=== PATIENT | male | born 1965 | race Caucasian/White ===

== ENCOUNTER 2016-11-15 23:43 | Inpatient (IN) | payer MEDICARE ==
[~2016-11-15] VITALS: Ht 180.3 cm; Wt 69.2 kg
[2016-11-15 23:46] VITALS: BP 185/99; PULSE 56; RESP 16; TEMP 98; O2SAT 98
[2016-11-16] VITALS (8 sets, daily range): BP systolic 148–190; BP diastolic 73–99; PULSE 60–73; RESP 16–20; TEMP 98.4; O2SAT 97–99
[2016-11-16] MEDS ORDERED: WELLTAB39 PO (00:14)
[2016-11-16] MEDS ORDERED: BYST10TA2 PO (00:14)
[2016-11-16] MEDS ORDERED: AMLO10TA2 PO ×2 (00:14→01:16)
[2016-11-16 00:37] LABS: AUTOMATED NEUTROPHIL # 2.8 TH/MM3 (1.8-7.7); BASOPHIL % 0.3 % (0.0-2.0); EOSINOPHIL # 0.1 TH/MM3 (0-0.4); HEMATOCRIT 37.9 % (39.0-51.0); HEMO FLAGS DIFF FINAL; LYMPH % 35.2 % (9.0-44.0); LYMPHOCYTE # 1.8 TH/MM3 (1.0-4.8); MEAN CELL VOLUME 88.1 FL (80.0-100.0); MEAN CORPUSCULAR HEMOGLOBIN 31.1 PG (27.0-34.0); MEAN CORPUSCULAR HGB CONC 35.3 % (32.0-36.0); MONO % 8.7 % (0.0-8.0); NEUT % 54.8 % (16.0-70.0); PLATELET COUNT 202 TH/MM3 (150-450); RED CELL DISTRIBUTION WIDTH 12.8 % (11.6-17.2); WHITE BLOOD COUNT 5.2 TH/MM3 (4.0-11.0)
[2016-11-16 00:45] LABS: AMPHETAMINE, URINE NEG (NEG); BARBITURATES, URINE NEG (NEG); COCAINE, URINE NEG (NEG)
[2016-11-16 01:07] LABS: ALT (GPT) 23 U/L (12-78); ANION GAP 8 MEQ/L (5-15); AST (GOT) 17 U/L (15-37); BLOOD UREA NITROGEN 14 MG/DL (7-18); CHLORIDE 105 MEQ/L (98-107); GLOMERULAR FILTRATION RATE 75 ML/MIN (>89); POTASSIUM 3.8 MEQ/L (3.5-5.1); SODIUM (NA) 143 MEQ/L (136-145)
[2016-11-16 01:09] LABS: ACETAMINOPHEN LESS THAN 2.0 MCG/ML (10.0-30.0); ALKALINE PHOSPHATASE 68 U/L (45-117); TOTAL BILIRUBIN ADULT 0.3 MG/DL (0.2-1.0)
[2016-11-16] MEDS ORDERED: LISI-515 PO (01:16)
--- NOTE | 2016-11-16 01:16 | PD ---
HPI Chief Complaint: Psychiatric Symptoms Time Seen by Provider: 01:12 Travel History International Travel<30 days: No Contact w/Intl Traveler<30days: No Traveled to known affect area: No History of Present Illness HPI Patient's 51-year-old male presenting to emergency department voluntarily due to worsening depression. Patient states it's been off of this medication for several months. He reports taking Wellbutrin 300 mg daily. He also reports a history of hypertension currently off of his blood pressure medications as well. Patient reports a previous suicide attempt 2 years ago while in [place], he states he cut his wrists. He reports not feeling safe alone with himself. He denies any homicidal ideations, visual or auditory hallucinations. He reports a past medical history significant for hypertension depression only.. Endorses occasional alcohol use and occasional marijuana use. PFSH Past Medical History Depression: Yes Hypertension: Yes Past Surgical History Other Surgery: Yes (back surgery) Social History Alcohol Use: Yes Tobacco Use: No Substance Use: Yes (mariuana) Allergies-Medications (Allergen,Severity, Reaction): Coded Allergies: No Known Allergies (Unverified , 11/16/16) Reported Meds & Prescriptions Reported Meds & Active Scripts Active Reported Amlodipine (Amlodipine Besylate) 10 Mg Tab 10 Mg PO DAILY Bystolic (Nebivolol) 10 Mg Tab 10 Mg PO DAILY Wellbutrin Xl 24 HR (Bupropion HCl) 300 Mg Tab 300 Mg PO DAILY Review of Systems Except as stated in HPI: all other systems reviewed are Neg Psychiatric: Positive: Depression Physical Exam Narrative GENERAL: Well-developed, well-nourished, alert male. Resting comfortably in no acute distress. SKIN: Focused skin assessment warm/dry. HEAD: Atraumatic. Normocephalic. EYES: Pupils equal and round. No scleral icterus. No injection or drainage. ENT: No nasal bleeding or discharge. Mucous membranes pink and moist. NECK: Trachea midline. No JVD. CARDIOVASCULAR: Regular rate and rhythm. No murmur appreciated. RESPIRATORY: No accessory muscle use. Clear to auscultation. Breath sounds equal bilaterally. GASTROINTESTINAL: Abdomen soft, non-tender, nondistended. Hepatic and splenic margins not palpable. MUSCULOSKELETAL: No obvious deformities. No clubbing. No cyanosis. No edema. NEUROLOGICAL: Awake and alert. No obvious cranial nerve deficits. Motor grossly within normal limits. Normal speech. PSYCHIATRIC: Appropriate mood and affect; insight and judgment normal. Data Data Last Documented VS Vital Signs Date Time Temp Pulse Resp B/P Pulse Ox O2 Delivery O2 Flow Rate FiO2 11/15/16 23:46 98.0 56 16 185/99 98 Orders Complete Blood Count With Diff (11/16/16 00:01) Comprehensive Metabolic Panel (11/16/16 00:01) Psych Screen (11/16/16 00:01) Drug Screen, Random Urine (11/16/16 00:01) Alcohol (Ethanol) (11/16/16 00:01) Salicylates (Aspirin) (11/16/16 00:01) Tylenol (Acetaminophen) (11/16/16 00:01) Labs Laboratory Tests Test 11/16/16 00:23 White Blood Count 5.2 TH/MM3 Red Blood Count 4.30 MIL/MM3 Hemoglobin 13.4 GM/DL Hematocrit 37.9 % Mean Corpuscular Volume 88.1 FL Mean Corpuscular Hemoglobin 31.1 PG Mean Corpuscular Hemoglobin 35.3 % Concent Red Cell Distribution Width 12.8 % Platelet Count 202 TH/MM3 Mean Platelet Volume 7.9 FL Neutrophils (%) (Auto) 54.8 % Lymphocytes (%) (Auto) 35.2 % Monocytes (%) (Auto) 8.7 % Eosinophils (%) (Auto) 1.0 % Basophils (%) (Auto) 0.3 % Neutrophils # (Auto) 2.8 TH/MM3 Lymphocytes # (Auto) 1.8 TH/MM3 Monocytes # (Auto) 0.4 TH/MM3 Eosinophils # (Auto) 0.1 TH/MM3 Basophils # (Auto) 0.0 TH/MM3 CBC Comment DIFF FINAL Differential Comment Sodium Level 143 MEQ/L Potassium Level 3.8 MEQ/L Chloride Level 105 MEQ/L Carbon Dioxide Level 30.0 MEQ/L Anion Gap 8 MEQ/L Blood Urea Nitrogen 14 MG/DL Creatinine 1.04 MG/DL Estimat Glomerular Filtration 75 ML/MIN Rate Random Glucose 77 MG/DL Calcium Level 8.8 MG/DL Total Bilirubin 0.3 MG/DL Aspartate Amino Transf 17 U/L (AST/SGOT) Alanine Aminotransferase 23 U/L (ALT/SGPT) Alkaline Phosphatase 68 U/L Total Protein 6.8 GM/DL Albumin 3.8 GM/DL Salicylates Level 2.8 MG/DL Urine Opiates Screen NEG Acetaminophen Level LESS THAN 2.0 MCG/ML Urine Barbiturates Screen NEG Urine Amphetamines Screen NEG Urine Benzodiazepines Screen NEG Urine Cocaine Screen NEG Urine Cannabinoids Screen POS Ethyl Alcohol Level LESS THAN 3 MG/DL MDM Medical Decision Making Medical Screen Exam Complete: Yes Emergency Medical Condition: Yes Interpretation(s) Laboratory Tests Test 11/16/16 00:23 White Blood Count 5.2 TH/MM3 Red Blood Count 4.30 MIL/MM3 Hemoglobin 13.4 GM/DL Hematocrit 37.9 % Mean Corpuscular Volume 88.1 FL Mean Corpuscular Hemoglobin 31.1 PG Mean Corpuscular Hemoglobin 35.3 % Concent Red Cell Distribution Width 12.8 % Platelet Count 202 TH/MM3 Mean Platelet Volume 7.9 FL Neutrophils (%) (Auto) 54.8 % Lymphocytes (%) (Auto) 35.2 % Monocytes (%) (Auto) 8.7 % Eosinophils (%) (Auto) 1.0 % Basophils (%) (Auto) 0.3 % Neutrophils # (Auto) 2.8 TH/MM3 Lymphocytes # (Auto) 1.8 TH/MM3 Monocytes # (Auto) 0.4 TH/MM3 Eosinophils # (Auto) 0.1 TH/MM3 Basophils # (Auto) 0.0 TH/MM3 CBC Comment DIFF FINAL Differential Comment Sodium Level 143 MEQ/L Potassium Level 3.8 MEQ/L Chloride Level 105 MEQ/L Carbon Dioxide Level 30.0 MEQ/L Anion Gap 8 MEQ/L Blood Urea Nitrogen 14 MG/DL Creatinine 1.04 MG/DL Estimat Glomerular Filtration 75 ML/MIN Rate Random Glucose 77 MG/DL Calcium Level 8.8 MG/DL Total Bilirubin 0.3 MG/DL Aspartate Amino Transf 17 U/L (AST/SGOT) Alanine Aminotransferase 23 U/L (ALT/SGPT) Alkaline Phosphatase 68 U/L Total Protein 6.8 GM/DL Albumin 3.8 GM/DL Salicylates Level 2.8 MG/DL Urine Opiates Screen NEG Acetaminophen Level LESS THAN 2.0 MCG/ML Urine Barbiturates Screen NEG Urine Amphetamines Screen NEG Urine Benzodiazepines Screen NEG Urine Cocaine Screen NEG Urine Cannabinoids Screen POS Ethyl Alcohol Level LESS THAN 3 MG/DL Vital Signs Date Time Temp Pulse Resp B/P Pulse Ox O2 Delivery O2 Flow Rate FiO2 11/15/16 23:46 98.0 56 16 185/99 98 Differential Diagnosis Mood disorder versus substance abuse to suicidal ideations versus depression versus other Narrative Course Patient's 51-year-old male with history of hypertension and depression currently off his medications for several months presenting to the emergency department for evaluation of depression and suicidal thoughts. Mental health screening discussed with the patient. Psychiatric screen ordered. Labs reviewed , no acute findings identified. Patient is resting comfortably, he is voluntary , he is cooperative at this time. Patient is medically clear for psychiatric evaluation. Blood pressure elevated in the emergency department. Patient was given dose of amlodipine 10 mg by mouth 1 dose and lisinopril. Prescriptions were written her blood pressure medications. Patient is to follow-up as outpatient at the [facility] clinic or with primary doctor for further management of his hypertension. Diagnosis Primary Impression: Medical clearance for psychiatric admission Additional Impressions: Depression Qualified Code: F32.9 - Depression, unspecified depression type Hypertension Qualified Code: I10 - Essential hypertension Scripts Lisinopril 20 Mg Tab20 Mg PO DAILY #30 TAB Ref 0 Prov:Ariella Norman 11/16/16 Amlodipine 10 Mg Tab10 Mg PO DAILY #30 TAB Ref 0 Prov:Ariella Norman 11/16/16 Condition: Stable Ariella Norman Nov 16, 2016 01:16
[2016-11-16] MEDS ORDERED: LISINOPRIL 20 MG TAB PO ONE ×2 (01:30→09:45)
[2016-11-16] MEDS ORDERED: hydrALAZINE HCL 10 MG TAB PO ONE (08:45)
[2016-11-16] MEDS: NEBIVOLOL 10 MG TAB PO SCH (09:49)
[2016-11-16] MEDS: LISINOPRIL 20 MG TAB PO SCH (09:50)
[2016-11-17 02:09] VITALS: BP 144/68; PULSE 55; RESP 20; TEMP 98.8; O2SAT 99
[2016-11-17 06:16] VITALS: BP 165/91; PULSE 55; RESP 17; O2SAT 97
[2016-11-17] MEDS: NEBIVOLOL 10 MG TAB PO SCH (09:00)
[2016-11-17 14:18] VITALS: BP 149/84; PULSE 54; RESP 18; O2SAT 100
[2016-11-17] MEDS ORDERED: ACETAMINOPHEN 325 MG TAB PO PRN (15:45)
[2016-11-17] MEDS ORDERED: LORazepam 1 MG TAB PO PRN (15:45)
[2016-11-17] MEDS ORDERED: LORazepam 2 MG/ML VIAL IM PRN ×2 (15:45)
[2016-11-17] MEDS ORDERED: MAGNESIUM HYDROXIDE SUSP 30 ML CUP PO PRN (15:45)
[2016-11-17] MEDS ORDERED: ALUMINUM/MAGNESIUM/SIMETH 30 ML CUP PO PRN (15:45)
[2016-11-17] MEDS ORDERED: LORazepam 0.5 MG TAB PO PRN (15:45)
[2016-11-17] MEDS ORDERED: hydrOXYzine HCL 50 MG TAB PO PRN (15:45)
[2016-11-17] MEDS ORDERED: traZODone HCL 50 MG TAB PO PRN (15:45)
[2016-11-17] MEDS ORDERED: buPROPion HCL 150 MG EXTENDED RELEASE TAB PO SCH (16:00)
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
[2016-11-17 16:29] VITALS: BP 149/84; TEMP 97.9
[2016-11-17 18:06] VITALS: BP 159/90; PULSE 53; RESP 19; TEMP 98.7; O2SAT 98
[2016-11-17] MEDS: buPROPion HCL 150 MG SUSTAINED RELEASE TAB PO SCH (20:36)
[2016-11-18] MEDS: buPROPion HCL 150 MG SUSTAINED RELEASE TAB PO SCH ×2 (09:00→20:06)
[2016-11-18] MEDS: NEBIVOLOL 10 MG TAB PO SCH (09:17)
[2016-11-18] MEDS: LISINOPRIL 20 MG TAB PO SCH (09:17)
[2016-11-18] MEDS ORDERED: MISCELLANEOUS NURSING INFORMATION ONE (10:00)
[2016-11-18] MEDS ORDERED: PNEUMOCOCCAL POLYVALENT INJ 25 MCG/0.5 ML SYR IM ONE (10:00)
[2016-11-18 11:29] LABS: BASOPHIL % 0.4 % (0.0-2.0); EOSINOPHIL % 0.5 % (0.0-4.0); HEMATOCRIT 47.3 % (39.0-51.0); HEMO FLAGS DIFF FINAL; LYMPH % 21.5 % (9.0-44.0); LYMPHOCYTE # 1.2 TH/MM3 (1.0-4.8); MEAN CELL VOLUME 89.6 FL (80.0-100.0); MEAN CORPUSCULAR HEMOGLOBIN 30.5 PG (27.0-34.0); MONO % 7.6 % (0.0-8.0); PLATELET COUNT 260 TH/MM3 (150-450); RED BLOOD COUNT 5.28 MIL/MM3 (4.50-5.90); RED CELL DISTRIBUTION WIDTH 13.2 % (11.6-17.2); WHITE BLOOD COUNT 5.8 TH/MM3 (4.0-11.0)
[2016-11-18 11:46] LABS: ALT (GPT) 26 U/L (12-78); ANION GAP 8 MEQ/L (5-15); AST (GOT) 15 U/L (15-37); BLOOD UREA NITROGEN 15 MG/DL (7-18); CHLORIDE 104 MEQ/L (98-107); GLOMERULAR FILTRATION RATE 81 ML/MIN (>89); POTASSIUM 3.8 MEQ/L (3.5-5.1); SODIUM (NA) 144 MEQ/L (136-145)
[2016-11-18 12:12] LABS: ALKALINE PHOSPHATASE 60 U/L (45-117); HDL CHOLESTEROL 55.8 MG/DL (40.0-60.0); LDL CHOLESTEROL 102 MG/DL (0-99); TOTAL BILIRUBIN ADULT 0.7 MG/DL (0.2-1.0)
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
--- NOTE | 2016-11-18 14:22 | EKG ---
Date Performed: 11/18/2016 Time Performed: 13:07:55 PTAGE: 51 years EKG: SINUS BRADYCARDIA INCOMPLETE RIGHT BUNDLE BRANCH BLOCK BORDERLINE ECG NO PREVIOUS TRACING DOCTOR: Marco Rodríguez Interpretating Date/Time 11/18/2016 14:20:20
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
[2016-11-18] MEDS ORDERED: LORazepam 1 MG TAB PO PRN (16:15)
[2016-11-18] MEDS ORDERED: ACETAMINOPHEN 325 MG TAB PO PRN (16:15)
[2016-11-18] MEDS ORDERED: MAGNESIUM HYDROXIDE SUSP 30 ML CUP PO PRN (16:15)
[2016-11-18] MEDS ORDERED: ALUMINUM/MAGNESIUM/SIMETH 30 ML CUP PO PRN (16:15)
[2016-11-18] MEDS ORDERED: hydrOXYzine HCL 50 MG TAB PO PRN (16:15)
[2016-11-18] MEDS ORDERED: LISINOPRIL 10 MG TAB PO ONE (16:45)
[2016-11-18 17:01] LABS: HEMOGLOBIN A1a 0.7 %; HEMOGLOBIN A1b 0.7 %; HEMOGLOBIN Ao 86.6 %; HEMOGLOBIN F 0.8 %; HEMOGLOBIN LA1C 1.8 %; HEMOGLOBIN P3 3.5 %
[2016-11-18 18:00] VITALS: BP 159/91; PULSE 50; RESP 18; TEMP 98.2; O2SAT 98
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
[2016-11-18] MEDS: REMOVE OLD NICODERM (NICOTINE) PATCH T-DERMAL SCH (20:07)
[2016-11-18] MEDS ORDERED: OLANZapine ODT 15 MG TAB PO SCH (21:00)
[2016-11-19 06:17] VITALS: BP 107/58; PULSE 52; RESP 17; TEMP 99.5; O2SAT 99
[2016-11-19] MEDS: MULTIVITAMIN TAB PO SCH (08:28)
[2016-11-19] MEDS: buPROPion HCL 150 MG SUSTAINED RELEASE TAB PO SCH ×2 (08:29→21:00)
[2016-11-19] MEDS: NEBIVOLOL 10 MG TAB PO SCH (08:29)
[2016-11-19] MEDS: NICOTINE 21 MG/24 HR PATCH T-DERMAL SCH (08:29)
--- NOTE | 2016-11-19 12:36 | HHI.PR ---
Subjective Remarks Ambulating in the hallways. Appears in nad. Patient says he feels better today. His BP is still uncontrolled. Says he is allergic to lisinopril. Says he has no headache, motor deficit. No n/v/d/c. Objective Vitals Vital Signs Date Time Temp Pulse Resp B/P Pulse Ox O2 Delivery O2 Flow Rate FiO2 11/19/16 06:17 99.5 52 17 107/58 99 11/18/16 18:00 98.2 50 18 159/91 98 11/18/16 18:00 98.2 50 18 159/91 98 Result Diagram: 11/18/16 1018 11/18/16 1018 Objective Remarks GENERAL: This is a well-nourished, well-developed patient, in no apparent distress. NECK: Trachea midline. No JVD or lymphadenopathy. Supple, nontender, no meningeal signs. CARDIOVASCULAR: Regular rate and rhythm without murmurs, gallops, or rubs. RESPIRATORY: Clear to auscultation. Breath sounds equal bilaterally. No wheezes , rales, or rhonchi. GASTROINTESTINAL: Abdomen soft, non-tender, nondistended. Bowel sounds active 4. MUSCULOSKELETAL: Extremities without clubbing, cyanosis, or edema. NEUROLOGICAL: Awake and alert. Oriented to place and person. Motor and sensory grossly within normal limits. Normal speech. A/P Problem List: (1) Chronic paranoid schizophrenia ICD Code: F20.0 Status: Acute (2) Hypertension ICD Code: I10 Status: Acute (3) Depression ICD Code: F32.9 Status: Acute Assessment and Plan Patient is a 51 y/o male with PMHX HTN, depression who came in to the hospital for worsening depression. He is now admitted to inpatient psychiatric unit for further evaluation. Consulted for medical management. Depression - Managed by psychiatry team Hypertension, uncontrolled Restart home meds amlodipine 10 mg daily, bystolic 10 mg daily BP still elevated. Monitor VS and adjust meds. Add hydralazine 10 mg po qid as need if SBP > 160. Patient is allergic to lisinopril. Continue when necessary clonidine for SBP greater than 160. Monitor BP trend Check lipid panel, check HgA1C, check tsh DVT prop ambulatory Code Status Full Code Discussed Condition With Patient, nurse Problem Qualifiers (1) Hypertension: Qualified Code: I10 - Essential hypertension (2) Depression: Qualified Code: F32.9 - Depression, unspecified depression type Ynes West MD Nov 19, 2016 12:35
--- NOTE | 2016-11-19 15:26 | HHI.PYPN ---
Subjective Remarks Patient was seen and case discussed with nursing. Patient is loud irritable and intrusive. Is perseverative on convincing me that in implant is above his right kidney and is asking me how about there. Says an x-ray scheduled for Monday improve his case in addition to an ultrasound is demanding. We spoke about his diagnosis of schizophrenia and patient became upset demanding to know who diagnosed him the psychotic disorder. Was loud and irritable with nursing Objective Alert: Yes [place]: Person, Place, Date Mood: Agitated, Angry, Anxious, Oppositional Affect: Manic, Other (paranoid) Memory Intact: Comment (fair) Hallucinations: Auditory (denies) Delusions: Yes Delusion Type: Grandiose, Paranoid (implant is controlling him) Suicidal: Ideation (states to consider killing himself if this monitoring does not go away) Homicidal: Ideation (denies) Insight/Judgment Poor Vitals/IOs Vital Signs Date Time Temp Pulse Resp B/P Pulse Ox O2 Delivery O2 Flow Rate FiO2 11/19/16 06:17 99.5 52 17 107/58 99 11/17/16 14:18 Room Air Assessment & Plan Problem List: (1) Chronic paranoid schizophrenia ICD Code: F20.0 Assessment & Plan Increase Zyprexa to 20 mg Justification for Cont. Inpt. Patient would decompensate in a less restrictive setting Linwood Murillo DO Nov 19, 2016 15:26
[2016-11-19 18:21] VITALS: BP 154/79; PULSE 49; RESP 18; TEMP 97.6; O2SAT 100
[2016-11-19] MEDS: OLANZapine ODT 20 MG TAB PO SCH (21:00)
[2016-11-19] MEDS: REMOVE OLD NICODERM (NICOTINE) PATCH T-DERMAL SCH (21:00)
[2016-11-20 06:01] VITALS: BP 128/71; PULSE 55; RESP 16; TEMP 98; O2SAT 100
[2016-11-20] MEDS: NEBIVOLOL 10 MG TAB PO SCH (08:20)
[2016-11-20] MEDS: MULTIVITAMIN TAB PO SCH (08:20)
[2016-11-20] MEDS: buPROPion HCL 150 MG SUSTAINED RELEASE TAB PO SCH ×2 (08:20→16:45)
[2016-11-20] MEDS: NICOTINE 21 MG/24 HR PATCH T-DERMAL SCH (08:21)
--- NOTE | 2016-11-20 11:47 | HHI.PR ---
Subjective Remarks Follow-up visit hypertension. Patient seen and examined today. States he is feeling better his chest that he is in " a lot not too good of the situation, that affecting my blood pressure ." Patient states that he is allergic to lisinopril and all the "Pril" medications and requesting to make sure that it is not ordered anywhere on his chart. Reassured patient. Otherwise, denies pain and discomfort. Denies SOB/ dyspnea. Denies chest pain, palpitations, headaches, dizziness. Denies fevers, chills, n/v/d. Denies dysuria. Objective Vitals Vital Signs Date Time Temp Pulse Resp B/P Pulse Ox O2 Delivery O2 Flow Rate FiO2 11/20/16 06:01 98.0 55 16 128/71 100 11/19/16 18:21 97.6 49 18 154/79 100 Result Diagram: 11/18/16 1018 11/18/16 1018 Objective Remarks GENERAL: This is a well-nourished, well-developed patient, in no apparent distress. SKIN: No rashes, ecchymoses or lesions. Cool and dry. HEAD: Atraumatic. Normocephalic. No temporal or scalp tenderness. EYES: Pupils equal round and reactive. Extraocular motions intact. No scleral icterus. No injection or drainage. ENT: Nose without bleeding. Throat without erythema. Uvula midline. Airway patent. NECK: Trachea midline. No JVD or lymphadenopathy. Supple, nontender, no meningeal signs. CARDIOVASCULAR: Regular rate and rhythm without murmurs, gallops, or rubs. RESPIRATORY: Clear to auscultation. Breath sounds equal bilaterally. No wheezes , rales, or rhonchi. GASTROINTESTINAL: Abdomen soft, non-tender, nondistended. Bowel sounds active 4. MUSCULOSKELETAL: Extremities without clubbing, cyanosis, or edema. NEUROLOGICAL: Awake and alert. Oriented to place and person. Motor and sensory grossly within normal limits. Pressured speech. A/P Problem List: (1) Chronic paranoid schizophrenia ICD Code: F20.0 Status: Acute (2) Hypertension ICD Code: I10 Status: Acute (3) Depression ICD Code: F32.9 Status: Acute Assessment and Plan Patient is a 51 y/o male with PMHX HTN, depression who came in to the hospital for worsening depression. He is now admitted to inpatient psychiatric unit for further evaluation. Consulted for medical management. Depression - Managed by psychiatry team Hypertension - Restart home meds amlodipine 10 mg daily, bystolic 10 mg daily - clonidine for SBP greater than 160 - Monitor BP trend - TSH within normal, hemoglobin A1c 5.0 HLD - LDL c102 - Patient states he is healthy and is aiming to be in good health. We'll continue with lifestyle changes for now - Follow up with PCP DVT prop ambulatory Discussed with patient, nursing Stable from Hospitalist standpoint. We will sign off. Reconsult as needed. Problem Qualifiers (1) Hypertension: Qualified Code: I10 - Essential hypertension (2) Depression: Qualified Code: F32.9 - Depression, unspecified depression type Verna Sidhu Nov 20, 2016 11:47
--- NOTE | 2016-11-20 14:11 | HHI.PYPN ---
Subjective Remarks Patient was seen and case discussed with nursing. Patient is less perseverative and less irritable compared to yesterday. However he is elevated hyperverbal. Asking for his Wellbutrin second dose to be given earlier in the day because it interferes with sleep but then says his Zyprexa makes him too sleepy. Continues to have fixed delusion that he has an implant. No outbursts. Denies suicidal ideation intent or plan Objective Alert: Yes [place]: Person, Place, Date Mood: Anxious Affect: Manic, Other (paranoid) Memory Intact: Comment (fair) Hallucinations: Auditory (denies) Delusions: Yes Delusion Type: Grandiose, Paranoid (implant is controlling him) Suicidal: Ideation (states to consider killing himself if this monitoring does not go away) Homicidal: Ideation (denies) Insight/Judgment Poor Vitals/IOs Vital Signs Date Time Temp Pulse Resp B/P Pulse Ox O2 Delivery O2 Flow Rate FiO2 11/20/16 06:01 98.0 55 16 128/71 100 11/17/16 14:18 Room Air Assessment & Plan Problem List: (1) Chronic paranoid schizophrenia ICD Code: F20.0 Assessment & Plan Change timing of Wellbutrin Justification for Cont. Inpt. Patient will decompensate in a less restrictive setting Linwood Murillo DO Nov 20, 2016 14:11
[2016-11-20 17:34] VITALS: BP 184/93; PULSE 50; RESP 18; TEMP 97.5; O2SAT 100
[2016-11-20] MEDS: OLANZapine ODT 20 MG TAB PO SCH (20:35)
[2016-11-20] MEDS: REMOVE OLD NICODERM (NICOTINE) PATCH T-DERMAL SCH (20:36)
[2016-11-21 06:01] VITALS: BP 148/74; PULSE 54; RESP 20; TEMP 97.8; O2SAT 97
[2016-11-21] MEDS: MULTIVITAMIN TAB PO SCH (09:06)
[2016-11-21] MEDS: buPROPion HCL 150 MG SUSTAINED RELEASE TAB PO SCH ×2 (09:07→18:02)
[2016-11-21] MEDS: NEBIVOLOL 10 MG TAB PO SCH (09:07)
[2016-11-21] MEDS: NICOTINE 21 MG/24 HR PATCH T-DERMAL SCH (09:08)
--- NOTE | 2016-11-21 11:59 | PD.TTN ---
Patient Problems 1. Discharge planning 2. Medication compliance 3. Knowledge deficit 4. Lack of coping skills Progress Toward Goals Provider Input: Dr. Blair's treatment team met to discuss patient's treatment plan, discharge and medication. Patient Psych Therapist Input: Patient is alert to person, place, but has poor insight into his situation. Patient continues to present with delusional content. Patient presented hostle, agitated, anxious, affect blunted. Patient's speech was clear with pressure. Patient is eating and sleeping well. Patient continues to state he is current in suicidal ideation, but denies homicidal. Patient continues to be responding to internal stimulated and being controlled. Occupational Therapist Input: Andrea ALMONTE reports patient does not attend groups. Carin Martin [facility] Nov 21, 2016 11:59
[2016-11-21] MEDS: LORazepam 2 MG/ML VIAL IM PRN (12:19)
--- NOTE | 2016-11-21 15:00 | HHI.PYPN ---
Subjective Remarks Patient seen in his room with nurse Al and medical student Isaac, chart review, patient compliant medication. Patient states he had somewhat of an adverse reaction to the Zyprexa over the weekend feeling somewhat days, lightheaded, and weak. Like he could not think. Staff is also talked to the patient's sister it appears she has issues with mood disorder and is on an antidepressant plus Abilify. It appears Abilify worked well with the sister. Patient is willing to have a trial with Abilify. Will discontinue the Zyprexa start Abilify 5 mg twice a day. Continue the Wellbutrin no change patient continues quite intense fidgety with rapid pressured speech and some poor personal boundaries. Is delusions continue related to the conspiratorial aspects of it. He also keeps voicing vague suicidal ideation for now continue treatment with med changes as above Review of Systems Except as stated in HPI: all other systems reviewed are Neg Objective Alert: Yes [place]: Person, Place, Date Mood: Anxious Affect: Manic, Other (paranoid) Memory Intact: Comment (fair) Hallucinations: Auditory (denies) Delusions: Yes Delusion Type: Grandiose, Paranoid (implant is controlling him) Suicidal: Ideation (states to consider killing himself if this monitoring does not go away) Homicidal: Ideation (denies) Insight/Judgment Poor Vitals/IOs Vital Signs Date Time Temp Pulse Resp B/P Pulse Ox O2 Delivery O2 Flow Rate FiO2 11/21/16 06:01 97.8 54 20 148/74 97 11/17/16 14:18 Room Air Assessment & Plan Problem List: (1) Chronic paranoid schizophrenia ICD Code: F20.0 Assessment & Plan Estimated LOS: days patient continues psychotic delusional, it appears he had an adverse reaction to the Zyprexa will discontinue that start Abilify 5 mg twice a day Justification for Cont. Inpt. At this time patient will decompensate the placed in a lower level of care Discharge Planning To be determined Arya Blair MD Nov 21, 2016 15:00
[2016-11-21 16:52] VITALS: BP 136/85; PULSE 50; RESP 18; TEMP 97.2; O2SAT 100
[2016-11-21] MEDS: REMOVE OLD NICODERM (NICOTINE) PATCH T-DERMAL SCH (21:00)
[2016-11-21] MEDS: ARIPiprazole 5 MG TAB PO SCH (21:36)
[2016-11-22 06:19] VITALS: BP 129/70; PULSE 64; RESP 20; TEMP 98.3; O2SAT 97
[2016-11-22] MEDS: LORazepam 2 MG/ML VIAL IM PRN ×2 (08:10→20:12)
[2016-11-22] MEDS: MULTIVITAMIN TAB PO SCH (08:58)
[2016-11-22] MEDS: buPROPion HCL 150 MG SUSTAINED RELEASE TAB PO SCH ×2 (08:58→17:00)
[2016-11-22] MEDS: NEBIVOLOL 10 MG TAB PO SCH (08:58)
[2016-11-22] MEDS: ARIPiprazole 5 MG TAB PO SCH ×2 (08:58→20:11)
[2016-11-22] MEDS: NICOTINE 21 MG/24 HR PATCH T-DERMAL SCH (08:58)
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
[2016-11-22 16:04] VITALS: BP 160/84; PULSE 65; RESP 18; TEMP 98.1; O2SAT 98
[2016-11-22] MEDS: REMOVE OLD NICODERM (NICOTINE) PATCH T-DERMAL SCH (20:15)
[2016-11-23] MEDS: hydrALAZINE HCL 10 MG TAB PO PRN (06:07)
[2016-11-23 06:26] VITALS: BP 193/91; PULSE 74; RESP 20; TEMP 97.9; O2SAT 98
[2016-11-23] MEDS: buPROPion HCL 150 MG SUSTAINED RELEASE TAB PO SCH ×2 (09:00→16:17)
[2016-11-23] MEDS: NICOTINE 21 MG/24 HR PATCH T-DERMAL SCH (09:00)
[2016-11-23] MEDS: MULTIVITAMIN TAB PO SCH (09:19)
[2016-11-23] MEDS: ARIPiprazole 5 MG TAB PO SCH ×2 (09:19→21:06)
[2016-11-23] MEDS: NEBIVOLOL 10 MG TAB PO SCH (09:19)
[2016-11-23] MEDS: LORazepam 2 MG/ML VIAL IM PRN (09:38)
[2016-11-23 09:49] VITALS: BP 160/98; PULSE 92; RESP 16
[2016-11-23] MEDS: cloNIDine HCL 0.1 MG TAB PO PRN (09:49)
[2016-11-23 11:37] VITALS: BP 140/88; PULSE 72; RESP 16
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
[2016-11-23] MEDS: DIAZEPAM 5 MG TAB PO SCH ×2 (16:17→21:06)
[2016-11-23 18:11] VITALS: BP 126/86; PULSE 64; RESP 18; TEMP 98; O2SAT 99
[2016-11-23] MEDS: REMOVE OLD NICODERM (NICOTINE) PATCH T-DERMAL SCH (21:00)
[2016-11-24] MEDS: NEBIVOLOL 10 MG TAB PO SCH (08:50)
[2016-11-24] MEDS: DIAZEPAM 5 MG TAB PO SCH ×4 (08:51→21:48)
[2016-11-24] MEDS: ARIPiprazole 5 MG TAB PO SCH ×2 (08:51→21:48)
[2016-11-24] MEDS: MULTIVITAMIN TAB PO SCH (08:52)
[2016-11-24] MEDS: NICOTINE 21 MG/24 HR PATCH T-DERMAL SCH (08:52)
[2016-11-24] MEDS: buPROPion HCL 150 MG SUSTAINED RELEASE TAB PO SCH ×2 (08:52→16:49)
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
[2016-11-24 16:01] VITALS: BP 138/87; PULSE 60; RESP 18; TEMP 97.3; O2SAT 98
[2016-11-24] MEDS: REMOVE OLD NICODERM (NICOTINE) PATCH T-DERMAL SCH (21:00)
[2016-11-25 06:45] VITALS: BP 159/75; PULSE 75; RESP 18; TEMP 97.1; O2SAT 100
[2016-11-25] MEDS: NEBIVOLOL 10 MG TAB PO SCH (08:39)
[2016-11-25] MEDS: MULTIVITAMIN TAB PO SCH (08:39)
[2016-11-25] MEDS: ARIPiprazole 5 MG TAB PO SCH (08:39)
[2016-11-25] MEDS: DIAZEPAM 5 MG TAB PO SCH ×4 (08:44→21:20)
[2016-11-25] MEDS: buPROPion HCL 150 MG SUSTAINED RELEASE TAB PO SCH ×2 (09:00→17:30)
[2016-11-25] MEDS: NICOTINE 21 MG/24 HR PATCH T-DERMAL SCH (09:00)
--- NOTE | 2016-11-25 14:22 | HHI.PYPN ---
Subjective Remarks Patient seen in day room nurse Maynor, patient states he slept from 10 PM to 4 AM which for him is remarkable success. He continues to show no signs of problems with the medication. His affect is somewhat softer less intense less paranoid. Though the basic delusion has not changed. Now will increase Abilify to 5 mg a.m. 10 mg at at bedtime Review of Systems Except as stated in HPI: all other systems reviewed are Neg Objective Alert: Yes [place]: Person, Place, Date Mood: Anxious Affect: Manic, Other (paranoid) Memory Intact: Comment (fair) Hallucinations: Auditory (denies) Delusions: Yes Delusion Type: Grandiose, Paranoid (implant is controlling him) Suicidal: Ideation (states to consider killing himself if this monitoring does not go away) Homicidal: Ideation (denies) Insight/Judgment Poor Vitals/IOs Vital Signs Date Time Temp Pulse Resp B/P Pulse Ox O2 Delivery O2 Flow Rate FiO2 11/25/16 06:45 97.1 75 18 159/75 100 Intake and Output 11/24/16 11/24/16 11/25/16 08:00 16:00 00:00 Intake Total 240 ml 240 ml Balance 240 ml 240 ml Assessment & Plan Problem List: (1) Chronic paranoid schizophrenia ICD Code: F20.0 Assessment & Plan Estimated LOS: days patient is psychotic with fixed delusions. Though the intensity the affect irritability when placing medication adjustment above Justification for Cont. Inpt. At this time patient will decompensate if placed in a lower level of care Discharge Planning To be determined Arya Blair MD Nov 25, 2016 14:22
[2016-11-25 17:38] VITALS: BP 113/67; PULSE 73; RESP 18; TEMP 97.8; O2SAT 93
[2016-11-25 17:39] VITALS: BP 139/81; PULSE 58; RESP 18; TEMP 97.6; O2SAT 99
[2016-11-25] MEDS: REMOVE OLD NICODERM (NICOTINE) PATCH T-DERMAL SCH (21:00)
[2016-11-25] MEDS: ARIPiprazole 10 MG TAB PO SCH (21:20)
[2016-11-26 06:52] VITALS: BP 151/67; PULSE 53; RESP 16; TEMP 97.5; O2SAT 98
[2016-11-26] MEDS: MULTIVITAMIN TAB PO SCH (08:58)
[2016-11-26] MEDS: DIAZEPAM 5 MG TAB PO SCH ×4 (08:59→22:11)
[2016-11-26] MEDS: ARIPiprazole 5 MG TAB PO SCH (08:59)
[2016-11-26] MEDS: NEBIVOLOL 10 MG TAB PO SCH (08:59)
[2016-11-26] MEDS: buPROPion HCL 150 MG SUSTAINED RELEASE TAB PO SCH ×2 (08:59→17:03)
[2016-11-26] MEDS: NICOTINE 21 MG/24 HR PATCH T-DERMAL SCH (09:00)
--- NOTE | 2016-11-26 15:44 | HHI.PYPN ---
Subjective Remarks Pt seen and discussed with staff. He remains delusional and believes that the FBI has implanted a device in his kidney. He states that he is tired of being controlled. He expressed SI and states that he is not safe. No SI/HI Objective Alert: Yes [place]: Person, Place, Date Mood: Calm Affect: Restricted, Other (paranoid) Memory Intact: Comment (fair) Hallucinations: Auditory (denies) Delusions: Yes Delusion Type: Grandiose, Paranoid (implant is controlling him) Suicidal: Ideation (states to consider killing himself if this monitoring does not go away) Homicidal: Ideation (denies) Insight/Judgment poor Vitals/IOs Vital Signs Date Time Temp Pulse Resp B/P Pulse Ox O2 Delivery O2 Flow Rate FiO2 11/26/16 06:52 97.5 53 16 151/67 98 Intake and Output 11/25/16 11/25/16 11/26/16 08:00 16:00 00:00 Intake Total 240 ml 240 ml Balance 240 ml 240 ml Assessment & Plan Problem List: (1) Chronic paranoid schizophrenia ICD Code: F20.0 Assessment & Plan Continue current tx plan. Estimated LOS: days Justification for Cont. Inpt. risk of decompensation Karen Carson MD Nov 26, 2016 15:44
[2016-11-26] MEDS: cloNIDine HCL 0.1 MG TAB PO PRN (17:03)
[2016-11-26 18:00] VITALS: BP 175/97; PULSE 60; RESP 16; TEMP 98.7; O2SAT 100
[2016-11-26] MEDS: REMOVE OLD NICODERM (NICOTINE) PATCH T-DERMAL SCH (21:00)
[2016-11-26] MEDS: ARIPiprazole 10 MG TAB PO SCH (22:02)
[2016-11-27 06:48] VITALS: BP 124/73; PULSE 65; RESP 20; TEMP 96; O2SAT 98
[2016-11-27] MEDS: NICOTINE 21 MG/24 HR PATCH T-DERMAL SCH (09:00)
[2016-11-27] MEDS: ARIPiprazole 5 MG TAB PO SCH (09:15)
[2016-11-27] MEDS: buPROPion HCL 150 MG SUSTAINED RELEASE TAB PO SCH ×2 (09:15→17:30)
[2016-11-27] MEDS: NEBIVOLOL 10 MG TAB PO SCH (09:15)
[2016-11-27] MEDS: MULTIVITAMIN TAB PO SCH (09:15)
[2016-11-27] MEDS: DIAZEPAM 5 MG TAB PO SCH ×4 (09:15→21:27)
--- NOTE | 2016-11-27 15:43 | HHI.PYPN ---
Subjective Remarks Pt seen and discussed with staff. He has spent most of day in room, resting in bed. Less focused on delusions today. He has been compliant with medications and reports sleep improved. No SI/HI Objective Alert: Yes [place]: Person, Place, Date Mood: Calm Affect: Restricted, Other (paranoid) Memory Intact: Comment (fair) Hallucinations: Auditory (denies) Delusions: Yes Delusion Type: Paranoid (implant is controlling him) Suicidal: Ideation (states to consider killing himself if this monitoring does not go away) Homicidal: Ideation (denies) Insight/Judgment poor Vitals/IOs Vital Signs Date Time Temp Pulse Resp B/P Pulse Ox O2 Delivery O2 Flow Rate FiO2 11/27/16 06:48 96.0 65 20 124/73 98 Assessment & Plan Problem List: (1) Chronic paranoid schizophrenia ICD Code: F20.0 Assessment & Plan Continue current tx plan. Estimated LOS: days Justification for Cont. Inpt. impairments in reality construction Karen Carson MD Nov 27, 2016 15:43
[2016-11-27 17:42] VITALS: BP 126/78; PULSE 65; RESP 18; TEMP 97.2; O2SAT 100
[2016-11-27] MEDS: REMOVE OLD NICODERM (NICOTINE) PATCH T-DERMAL SCH (21:00)
[2016-11-27] MEDS: ARIPiprazole 10 MG TAB PO SCH (21:27)
[2016-11-28 05:48] VITALS: BP 121/84; PULSE 64; RESP 19; TEMP 97; O2SAT 99
[2016-11-28] MEDS: NICOTINE 21 MG/24 HR PATCH T-DERMAL SCH (09:00)
[2016-11-28] MEDS: MULTIVITAMIN TAB PO SCH (09:05)
[2016-11-28] MEDS: DIAZEPAM 5 MG TAB PO SCH ×4 (09:06→21:20)
[2016-11-28] MEDS: buPROPion HCL 150 MG SUSTAINED RELEASE TAB PO SCH ×2 (09:06→16:55)
[2016-11-28] MEDS: NEBIVOLOL 10 MG TAB PO SCH (09:06)
[2016-11-28] MEDS: ARIPiprazole 5 MG TAB PO SCH (09:06)
--- NOTE | 2016-11-28 13:02 | HHI.PYPN ---
Subjective Remarks Issues discussed the treatment team, chart review, patient compliant medication. Patient seen on unit with nurse Lety patient states he still has been sleeping all night wishes first time he has done that "years". Giving him increased focus is somewhat more relaxed. Though the cord delusional ideation persists. Is not exhibiting the intense paranoia he has in the past. For now continue treatment no change Review of Systems Except as stated in HPI: all other systems reviewed are Neg Objective Alert: Yes [place]: Person, Place, Date Mood: Calm Affect: Restricted, Other (paranoid) Memory Intact: Comment (fair) Hallucinations: Auditory (denies) Delusions: Yes Delusion Type: Paranoid (implant is controlling him) Suicidal: Ideation (states to consider killing himself if this monitoring does not go away) Homicidal: Ideation (denies) Insight/Judgment Poor Vitals/IOs Vital Signs Date Time Temp Pulse Resp B/P Pulse Ox O2 Delivery O2 Flow Rate FiO2 11/28/16 05:48 97.0 64 19 121/84 99 Assessment & Plan Problem List: (1) Chronic paranoid schizophrenia ICD Code: F20.0 Assessment & Plan Estimated LOS: days patient continues delusional and intense though sleep is improving his affect is somewhat calmer there is slight decrease in the expression of his paranoia Justification for Cont. Inpt. At this time patient will decompensate then placed in a lower level of care Discharge Planning To be determined Arya Blair MD Nov 28, 2016 13:02
[2016-11-28] MEDS: hydrALAZINE HCL 10 MG TAB PO PRN (16:56)
[2016-11-28 17:12] VITALS: BP 163/92; PULSE 66; RESP 18; TEMP 97.9; O2SAT 98
[2016-11-28 18:14] VITALS: BP 140/90; PULSE 76; RESP 16
[2016-11-28] MEDS: ARIPiprazole 10 MG TAB PO SCH (20:57)
[2016-11-28] MEDS: REMOVE OLD NICODERM (NICOTINE) PATCH T-DERMAL SCH (20:58)
[2016-11-29 05:23] VITALS: BP 134/82; PULSE 55; RESP 19; TEMP 97.6; O2SAT 98
[2016-11-29 06:28] VITALS: BP 134/82; PULSE 55; RESP 19; TEMP 97.6; O2SAT 98
[2016-11-29] MEDS: buPROPion HCL 150 MG SUSTAINED RELEASE TAB PO SCH ×2 (08:36→17:49)
[2016-11-29] MEDS: DIAZEPAM 5 MG TAB PO SCH ×4 (08:36→21:09)
[2016-11-29] MEDS: NEBIVOLOL 10 MG TAB PO SCH (08:36)
[2016-11-29] MEDS: ARIPiprazole 5 MG TAB PO SCH (08:36)
[2016-11-29] MEDS: MULTIVITAMIN TAB PO SCH (08:36)
[2016-11-29] MEDS: NICOTINE 21 MG/24 HR PATCH T-DERMAL SCH (09:00)
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
[2016-11-29 15:34] VITALS: BP 132/86; PULSE 60; RESP 18; TEMP 97.6; O2SAT 97
[2016-11-29] MEDS: REMOVE OLD NICODERM (NICOTINE) PATCH T-DERMAL SCH (20:56)
[2016-11-29] MEDS: ARIPiprazole 10 MG TAB PO SCH (21:09)
[2016-11-30 05:39] VITALS: BP 135/57; PULSE 63; RESP 17; TEMP 97; O2SAT 99
[2016-11-30] MEDS: NEBIVOLOL 10 MG TAB PO SCH (08:42)
[2016-11-30] MEDS: MULTIVITAMIN TAB PO SCH (08:42)
[2016-11-30] MEDS: buPROPion HCL 150 MG SUSTAINED RELEASE TAB PO SCH (08:43)
[2016-11-30] MEDS: ARIPiprazole 5 MG TAB PO SCH (08:43)
[2016-11-30] MEDS: DIAZEPAM 5 MG TAB PO SCH ×2 (08:43→13:28)
[2016-11-30] MEDS: NICOTINE 21 MG/24 HR PATCH T-DERMAL SCH (09:00)
[2016-11-30] MEDS ORDERED: DIAZ5 PO (10:55)
[2016-11-30] MEDS ORDERED: THERTAB15 PO (10:55)
[2016-11-30] MEDS ORDERED: AMLO10 PO (10:55)
[2016-11-30] MEDS ORDERED: ARIP1TAB11 PO (10:55)
[2016-11-30] MEDS ORDERED: BUPR150CR PO (10:55)
[2016-11-30] MEDS ORDERED: BYST10TA2 PO (10:55)
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
== END 2016-11-30 14:10 | disposition home or self-care (01) | DRG 885 ==
LOC: NEPD 23:43 → NEDA 11-17 15:40 → H260 11-17 16:43
PROVIDERS: ADMIT Psychiatry & Neurology Psychiatry; ATTEND Psychiatry & Neurology Psychiatry
DX: F20.0 Paranoid schizophrenia (principal); R45.851 Suicidal ideations; I10 Essential (primary) hypertension; F32.9 Major depressive disorder, single episode, unspecified; E78.5 Hyperlipidemia, unspecified; G89.29 Other chronic pain; M54.9 Dorsalgia, unspecified; Z91.5 Personal history of self-harm; Z23 Encounter for immunization
CPT/HCPCS: 80053; 80061; 80307; 82306; 82607; 83036; 84443; 85025; 90732; 93005; J2060

== ENCOUNTER 2016-12-20 11:12 | Emergency (ER) | payer SELFPAY ==
[~2016-12-20 11:12] MED LIST: AMLO10 PO; AMLO10TA2 PO; ARIP1TAB11 PO; BUPR150CR PO; BYST10TA2 PO; DIAZ5 PO; THERTAB15 PO; WELLTAB39 PO
[2016-12-20 11:26] VITALS: BP 205/96; PULSE 101; RESP 20; TEMP 98.9; O2SAT 100
[2016-12-20] MEDS ORDERED: LIDOCAINE HCL 1% 50 ML VIAL INFIL ONE (11:45)
[2016-12-20] MEDS ORDERED: KETOROLAC TROMETHAMINE 30 MG/ML (IVP) VIAL IV PUSH ONE (11:45)
[2016-12-20] MEDS ORDERED: CLINDAMYCIN INJ 600 MG in SODIUM CHLORIDE 0.9% INJ 100 ML IV ONE (11:45)
--- NOTE | 2016-12-20 11:49 | PD ---
HPI Chief Complaint: Skin Problem Time Seen by Provider: 11:33 Travel History International Travel<30 days: No Contact w/Intl Traveler<30days: No Traveled to known affect area: No History of Present Illness HPI This is a 51-year-old male who presents to the emergency department with 4 days of increasing pain and swelling involving his left thumb, constant, moderate severity associated with some streaking up his left arm. He denies any fevers or chills. He also has some complaints of lower she may swelling which is been going on for a while. PFSH Past Medical History Depression: Yes Hypertension: Yes Psychiatric: Yes (Bipolar) Past Surgical History Other Surgery: Yes (back surgery) Social History Alcohol Use: Yes Tobacco Use: No Substance Use: Yes (marijuana) Allergies-Medications (Allergen,Severity, Reaction): Coded Allergies: Lisinopril (Verified Allergy, Severe, TACHYCARDIA, 11/16/16) Aspirin (Verified Allergy, Intermediate, GI UPSET, 11/16/16) Reported Meds & Prescriptions Reported Meds & Active Scripts Active Bystolic (Nebivolol) 10 Mg Tab 10 Mg PO DAILY Thera/Beta-Carotene (Multiple Vitamin) 1 Tab Tab 1 Tab PO DAILY Reported Amlodipine (Amlodipine Besylate) 10 Mg Tab 10 Mg PO DAILY Bystolic (Nebivolol) 10 Mg Tab 10 Mg PO DAILY Wellbutrin Xl 24 HR (Bupropion HCl) 300 Mg Tab 300 Mg PO DAILY Review of Systems Except as stated in HPI: all other systems reviewed are Neg Physical Exam Narrative GENERAL:Well appearing, no acute distress SKIN: Large paronychia involving the left thumb with some lymphangitis streaking up the left arm HEAD: Atraumatic. Normocephalic. EYES: Pupils equal and round. No injection or drainage. ENT: Moist mucous membranes NECK: Trachea midline. CARDIOVASCULAR: Regular rate and rhythm. No murmur appreciated. RESPIRATORY: Clear to auscultation. Breath sounds equal bilaterally. GASTROINTESTINAL: Abdomen soft, non-tender, nondistended. MUSCULOSKELETAL: No obvious deformities. NEUROLOGICAL: Awake and alert. No obvious cranial nerve deficits. Moving all extremities. PSYCHIATRIC: Appropriate mood and affect; insight and judgment normal. Data Data Last Documented VS Vital Signs Date Time Temp Pulse Resp B/P Pulse Ox O2 Delivery O2 Flow Rate FiO2 12/20/16 11:26 98.9 101 20 205/96 100 Orders Complete Blood Count With Diff (12/20/16 11:37) Comprehensive Metabolic Panel (12/20/16 11:37) Lidocaine 1% Inj (50 Ml) (Xylocaine 1% I (12/20/16 11:45) Wound Culture And Gram Stain (12/20/16 11:37) Clindamycin Inj (Cleocin Inj) (12/20/16 11:45) Ketorolac Inj (Toradol Inj) (12/20/16 11:45) Lidocaine 1% Inj (Xylocaine 1% Inj) (12/20/16 12:15) Potassium Chloride Eff (K-Lyte Cl Eff) (12/20/16 13:15) Labs Laboratory Tests Test 12/20/16 11:50 White Blood Count 9.7 TH/MM3 Red Blood Count 3.95 MIL/MM3 Hemoglobin 12.3 GM/DL Hematocrit 35.3 % Mean Corpuscular Volume 89.6 FL Mean Corpuscular Hemoglobin 31.1 PG Mean Corpuscular Hemoglobin 34.7 % Concent Red Cell Distribution Width 12.9 % Platelet Count 305 TH/MM3 Mean Platelet Volume 6.2 FL Neutrophils (%) (Auto) 75.4 % Lymphocytes (%) (Auto) 13.7 % Monocytes (%) (Auto) 10.3 % Eosinophils (%) (Auto) 0.4 % Basophils (%) (Auto) 0.2 % Neutrophils # (Auto) 7.3 TH/MM3 Lymphocytes # (Auto) 1.3 TH/MM3 Monocytes # (Auto) 1.0 TH/MM3 Eosinophils # (Auto) 0.0 TH/MM3 Basophils # (Auto) 0.0 TH/MM3 CBC Comment DIFF FINAL Differential Comment Sodium Level 137 MEQ/L Potassium Level 2.8 MEQ/L Chloride Level 99 MEQ/L Carbon Dioxide Level 30.2 MEQ/L Anion Gap 8 MEQ/L Blood Urea Nitrogen 11 MG/DL Creatinine 0.92 MG/DL Estimat Glomerular Filtration 86 ML/MIN Rate Random Glucose 77 MG/DL Calcium Level 9.1 MG/DL Total Bilirubin 0.8 MG/DL Aspartate Amino Transf 31 U/L (AST/SGOT) Alanine Aminotransferase 33 U/L (ALT/SGPT) Alkaline Phosphatase 89 U/L Total Protein 7.6 GM/DL Albumin 3.8 GM/DL [facility] Medical Decision Making Medical Screen Exam Complete: Yes Emergency Medical Condition: Yes Interpretation(s) afebrile, mild tachycardia, hypertensive no leukocytosis hypokalemia Differential Diagnosis paronychia, cellulitis, sepsis Narrative Course This is a 41-year-old male who presents to the emergency department with a large paronychia involving his thumb. He does have some lymphangitic spread in the arm. Labs are obtained which demonstrate a normal white blood cell count. His only SIRS criteria is tachycardia with a heart rate of 101. I don't think he septic. Discussed the pros and cons of admission versus discharge with the patient. The patient is homeless and has some psychiatric disease. I think [facility] would be a good choice for this patient because if he is unable to follow-up he will get complete treatment for his infection. I still emphasized that he should return to the emergency department if his symptoms worsen but at this time I don't think he meets admission criteria. Patient will be discharged home. Diagnosis Primary Impression: Paronychia Qualified Code: L03.012 - Paronychia, left Patient Instructions: General Instructions Additional Instructions: If you develop fever, increasing redness, warmth, or spreading of your infection , or severe pain return to the emergency department immediately as you may require antibiotics through your IV. Med/Other Pt SpecificInfo: No Change to Meds Disposition: 01 DISCHARGE HOME Condition: Stable Jessica Nicholson MD Dec 20, 2016 11:49
--- NOTE | 2016-12-20 12:12 | PD ---
Physical Exam Date Seen by Provider: Dec 20, 2016 Time Seen by Provider: 12:11 Data Data Last Documented VS Vital Signs Date Time Temp Pulse Resp B/P Pulse Ox O2 Delivery O2 Flow Rate FiO2 12/20/16 11:26 98.9 101 20 205/96 100 Orders Complete Blood Count With Diff (12/20/16 11:37) Comprehensive Metabolic Panel (12/20/16 11:37) Lidocaine 1% Inj (50 Ml) (Xylocaine 1% I (12/20/16 11:45) Wound Culture And Gram Stain (12/20/16 11:37) Clindamycin Inj (Cleocin Inj) (12/20/16 11:45) Ketorolac Inj (Toradol Inj) (12/20/16 11:45) Lidocaine 1% Inj (Xylocaine 1% Inj) (12/20/16 12:15) Potassium Chloride Eff (K-Lyte Cl Eff) (12/20/16 13:15) Consult Infectious Disease (12/20/16 ) Case Management Consult (12/20/16 ) [facility] Information ([facility] (12/20/16 14:00) [facility] Inj ([facility] Inj) (12/20/16 13:59) [facility] (12/20/16 13:59) Measurements (12/20/16 13:59) Labs Laboratory Tests Test 12/20/16 11:50 White Blood Count 9.7 TH/MM3 Red Blood Count 3.95 MIL/MM3 Hemoglobin 12.3 GM/DL Hematocrit 35.3 % Mean Corpuscular Volume 89.6 FL Mean Corpuscular Hemoglobin 31.1 PG Mean Corpuscular Hemoglobin 34.7 % Concent Red Cell Distribution Width 12.9 % Platelet Count 305 TH/MM3 Mean Platelet Volume 6.2 FL Neutrophils (%) (Auto) 75.4 % Lymphocytes (%) (Auto) 13.7 % Monocytes (%) (Auto) 10.3 % Eosinophils (%) (Auto) 0.4 % Basophils (%) (Auto) 0.2 % Neutrophils # (Auto) 7.3 TH/MM3 Lymphocytes # (Auto) 1.3 TH/MM3 Monocytes # (Auto) 1.0 TH/MM3 Eosinophils # (Auto) 0.0 TH/MM3 Basophils # (Auto) 0.0 TH/MM3 CBC Comment DIFF FINAL Differential Comment Sodium Level 137 MEQ/L Potassium Level 2.8 MEQ/L Chloride Level 99 MEQ/L Carbon Dioxide Level 30.2 MEQ/L Anion Gap 8 MEQ/L Blood Urea Nitrogen 11 MG/DL Creatinine 0.92 MG/DL Estimat Glomerular Filtration 86 ML/MIN Rate Random Glucose 77 MG/DL Calcium Level 9.1 MG/DL Total Bilirubin 0.8 MG/DL Aspartate Amino Transf 31 U/L (AST/SGOT) Alanine Aminotransferase 33 U/L (ALT/SGPT) Alkaline Phosphatase 89 U/L Total Protein 7.6 GM/DL Albumin 3.8 GM/DL [facility] Supervised Visit with [facility]: No Narrative Course I was asked to evaluate this patient's left thumb paronychia The patient was initially seen by Dr. Nciholson. Please see her note for full H& P. On my exam the distal tip of the left thumb surrounding the periungual area as is edematous with a large amount of pus and fluid visible under the skin. Abscess I&D repair was performed. Please see my procedure note for details. Dr. Nicholson retains care of this patient. Please see her note for disposition. Procedures Procedure Narrative INCISION AND DRAINAGE OF ABSCESS: The area was prepped and was sterilely draped. A subcutaneous wheal of 1% Xylocaine with a total number 2mL was used to anesthetize the area properly. A number 11 scalpel was used to make a 1-cm incision 2 across the area of the abscess. The abscess was drained, complex loculations were broken down, and irrigated with normal saline. Cultures were obtained. Sterile dressing applied. Patient advised to have packing removed in two days. Shelly Rush Dec 20, 2016 12:12
[2016-12-20] MEDS ORDERED: LIDOCAINE HCL 1% 20 ML VIAL INFIL ONE (12:15)
[2016-12-20 12:29] LABS: AUTOMATED NEUTROPHIL # 7.3 TH/MM3 (1.8-7.7); BASOPHIL % 0.2 % (0.0-2.0); EOSINOPHIL % 0.4 % (0.0-4.0); HEMATOCRIT 35.3 % (39.0-51.0); HEMO FLAGS DIFF FINAL; LYMPH % 13.7 % (9.0-44.0); LYMPHOCYTE # 1.3 TH/MM3 (1.0-4.8); MEAN CELL VOLUME 89.6 FL (80.0-100.0); MEAN CORPUSCULAR HEMOGLOBIN 31.1 PG (27.0-34.0); MEAN CORPUSCULAR HGB CONC 34.7 % (32.0-36.0); MONO % 10.3 % (0.0-8.0); NEUT % 75.4 % (16.0-70.0); PLATELET COUNT 305 TH/MM3 (150-450); RED BLOOD COUNT 3.95 MIL/MM3 (4.50-5.90); RED CELL DISTRIBUTION WIDTH 12.9 % (11.6-17.2); WHITE BLOOD COUNT 9.7 TH/MM3 (4.0-11.0)
[2016-12-20 12:49] LABS: ALKALINE PHOSPHATASE 89 U/L (45-117); ALT (GPT) 33 U/L (12-78); ANION GAP 8 MEQ/L (5-15); AST (GOT) 31 U/L (15-37); BICARBONATE 30.2 MEQ/L (21.0-32.0); BLOOD UREA NITROGEN 11 MG/DL (7-18); CHLORIDE 99 MEQ/L (98-107); GLOMERULAR FILTRATION RATE 86 ML/MIN (>89); SODIUM (NA) 137 MEQ/L (136-145); TOTAL BILIRUBIN ADULT 0.8 MG/DL (0.2-1.0)
[2016-12-20 12:52] LABS: POTASSIUM 2.8 MEQ/L (3.5-5.1)
[2016-12-20] MEDS ORDERED: POTASSIUM CHLORIDE 25 MEQ EFFERVESCENT TAB PO ONE (13:15)
[2016-12-20] MEDS ORDERED: DALBAVANCIN INJ 1,500 MG in DEXTROSE 5% IN WATE 500 ML INJ 500 ML IV STA ×2 (13:59)
[2016-12-20] MEDS ORDERED: MISCELLANEOUS PHARMACY INFORMATION XX ONE (14:00)
[2016-12-20] MEDS ORDERED: ASP: Only reason for admit - IV antibiotics OTHER ONE (14:45)
[2016-12-20] MEDS ORDERED: ASP: Does not meet inpatient admission criteria OTHER ONE (14:45)
[2016-12-20] MEDS ORDERED: ASP: No known hypersensitivity to Vanco, Telavancin, Dalbavancin OTHER ONE (14:45)
[2016-12-20] MEDS ORDERED: ASP: Location of Dalbavancin administration OTHER ONE (14:45)
== END 2016-12-20 17:15 | disposition home or self-care (01) ==
LOC: NEPD 11:12
DX: L03.012 Cellulitis of left finger (principal); B95.0 Streptococcus, group A, as the cause of diseases classified elsewhere; B95.61 Methicillin susceptible Staphylococcus aureus infection as the cause of diseases classified elsewhere
CPT/HCPCS: 10061; 80053; 85025; 86403; 87070; 87186; 96365; 96367; 96375; 99284; J0875; J1885; J7060

== ENCOUNTER 2017-05-28 23:50 | Inpatient (IN) | payer MEDICARE, OTHER ==
[~2017-05-28] VITALS: Ht 180.3 cm; Wt 71.7 kg
[~2017-05-28 23:50] MED LIST changes: -AMLO10 PO; -ARIP1TAB11 PO; -BUPR150CR PO; +BUPR300T PO; -DIAZ5 PO; +HYDR25TA5 PO
[2017-05-29 00:02] VITALS: BP 194/110; PULSE 94; RESP 16; TEMP 97.9; O2SAT 99
--- NOTE | 2017-05-29 00:09 | PD ---
HPI Chief Complaint: Psychiatric Symptoms Time Seen by Provider: 00:05 Travel History International Travel<30 days: No Contact w/Intl Traveler<30days: No Traveled to known affect area: No History of Present Illness HPI 52-year-old male with history apparently schizophrenia presents emergency department under [place] act for psychiatric evaluation. Patient was found by law enforcement on the side of the road, yelling aggressively. He insists that he has had the device implanted in his body. At this time is difficult have a conversation with. He offers little more history. He denies any acute medical needs at this time. FORMERLY [facility], 1928–1983 Past Medical History Depression: Yes Diminished Hearing: No Genitourinary: No Hypertension: Yes Musculoskeletal: No Neurologic: No Psychiatric: Yes (Parnoid Schizophrenia) Reproductive: No Respiratory: Yes (HE HAS VERY HIGH BLOOD PRESSURE) Past Surgical History Abdominal Surgery: No Ear Surgery: No Endocrine Surgery: No Eye Surgery: No Genitourinary Surgery: No Gynecologic Surgery: No Oral Surgery: No Thoracic Surgery: No Social History Alcohol Use: No (DENIES) Tobacco Use: No (DENIES) Substance Use: No Allergies-Medications (Allergen,Severity, Reaction): Coded Allergies: lisinopril (Unverified Allergy, Severe, TACHYCARDIA, 05/29/17) aspirin (Unverified Allergy, Intermediate, GI UPSET, 05/29/17) Reported Meds & Prescriptions Reported Meds & Active Scripts Active Amlodipine (Amlodipine Besylate) 10 Mg Tab 10 Mg PO DAILY Bupropion HCl ER 24 HR (Bupropion HCl) 300 Mg Tab 300 Mg PO DAILY Hydrochlorothiazide 25 Mg Tab 25 Mg PO DAILY Thera/Beta-Carotene (Multiple Vitamin) 1 Tab Tab 1 Tab PO DAILY Reported Bystolic (Nebivolol) 10 Mg Tab 10 Mg PO DAILY Wellbutrin Xl 24 HR (Bupropion HCl) 300 Mg Tab 300 Mg PO DAILY Review of Systems Except as stated in HPI: all other systems reviewed are Neg Physical Exam Narrative GENERAL: Well-nourished male patient, with bizarre affect but in no acute distress. SKIN: Focused skin assessment warm/dry. HEAD: Atraumatic. Normocephalic. EYES: Pupils equal and round. No scleral icterus. No injection or drainage. ENT: No nasal bleeding or discharge. Mucous membranes pink and moist. NECK: Trachea midline. No JVD. CARDIOVASCULAR: Elevated rate and rhythm. No murmur appreciated. RESPIRATORY: No accessory muscle use. Clear to auscultation. Breath sounds equal bilaterally. GASTROINTESTINAL: Abdomen soft, non-tender, nondistended. Hepatic and splenic margins not palpable. MUSCULOSKELETAL: No obvious deformities. No clubbing. No cyanosis. No edema. NEUROLOGICAL: Awake and alert. No obvious cranial nerve deficits. Motor grossly within normal limits. Normal speech. Data Data Last Documented VS Vital Signs Date Time Temp Pulse Resp B/P (MAP) Pulse Ox O2 Delivery O2 Flow Rate FiO2 05/29/17 03:35 96 18 159/108 (125) 99 Room Air 05/29/17 00:02 97.9 Orders Orders Complete Blood Count With Diff (05/29/17 00:09) Basic Metabolic Panel (Bmp) (05/29/17 00:09) Psych Screen (05/29/17 00:09) Drug Screen, Random Urine (05/29/17 00:09) Alcohol (Ethanol) (05/29/17 00:09) Haloperidol Inj (Haldol Inj) (05/29/17 06:30) Diphenhydramine Inj (Benadryl Inj) (05/29/17 06:30) Lorazepam Inj (Ativan Inj) (05/29/17 06:30) Labs Laboratory Tests Test 05/29/17 00:20 05/29/17 04:50 White Blood Count 5.6 TH/MM3 Red Blood Count 4.72 MIL/MM3 Hemoglobin 14.8 GM/DL Hematocrit 43.5 % Mean Corpuscular Volume 92.0 FL Mean Corpuscular Hemoglobin 31.3 PG Mean Corpuscular Hemoglobin Concent 34.0 % Red Cell Distribution Width 13.2 % Platelet Count 247 TH/MM3 Mean Platelet Volume 7.4 FL Neutrophils (%) (Auto) 52.2 % Lymphocytes (%) (Auto) 39.0 % Monocytes (%) (Auto) 7.1 % Eosinophils (%) (Auto) 1.0 % Basophils (%) (Auto) 0.7 % Neutrophils # (Auto) 2.9 TH/MM3 Lymphocytes # (Auto) 2.2 TH/MM3 Monocytes # (Auto) 0.4 TH/MM3 Eosinophils # (Auto) 0.1 TH/MM3 Basophils # (Auto) 0.0 TH/MM3 CBC Comment DIFF FINAL Differential Comment Blood Urea Nitrogen 13 MG/DL Creatinine 1.05 MG/DL Random Glucose 88 MG/DL Calcium Level 8.8 MG/DL Sodium Level 143 MEQ/L Potassium Level 3.8 MEQ/L Chloride Level 109 MEQ/L Carbon Dioxide Level 26.9 MEQ/L Anion Gap 7 MEQ/L Estimat Glomerular Filtration Rate 74 ML/MIN Ethyl Alcohol Level 131 MG/DL Urine Opiates Screen NEG Urine Barbiturates Screen NEG Urine Amphetamines Screen NEG Urine Benzodiazepines Screen NEG Urine Cocaine Screen NEG Urine Cannabinoids Screen POS MDM Medical Decision Making Medical Screen Exam Complete: Yes Emergency Medical Condition: Yes Medical Record Reviewed: Yes Differential Diagnosis Mood disorder versus personality disorder versus adjustment reaction disorder Narrative Course 52-year-old male presents to emergency department under [place] act for psychiatric evaluation. Patient offers minimal history at this time. He appears without distress. He is under [place] act. Lab work is ordered for medical clearance. Pending no acute lab abnormality, patient is medically cleared to undergo psychiatric screening for further evaluation and disposition. Mental health screening discussed with the patient. Psychiatric screen ordered. 1820 patient has awoken. He is yelling and grabbing his head and shaking side- to-side. He is crying. He is panting He will not answer my questions. He appears acutely psychotic. He'll be medicated at this time with Haldol, Ativan , and Benadryl. . Diagnosis Primary Impression: Delusional disorder, mixed type, with bizarre content, continuous Condition: Stable Celine Hassan May 29, 2017 00:09
[2017-05-29 00:27] LABS: AUTOMATED NEUTROPHIL # 2.9 TH/MM3 (1.8-7.7); BASOPHIL % 0.7 % (0.0-2.0); EOSINOPHIL # 0.1 TH/MM3 (0-0.4); HEMATOCRIT 43.5 % (39.0-51.0); HEMOGLOBIN 14.8 GM/DL (13.0-17.0); LYMPHOCYTE # 2.2 TH/MM3 (1.0-4.8); MEAN CORPUSCULAR HEMOGLOBIN 31.3 PG (27.0-34.0); MEAN PLATELET VOLUME 7.4 FL (7.0-11.0); MONO % 7.1 % (0.0-8.0); MONOCYTE # 0.4 TH/MM3 (0-0.9); NEUT % 52.2 % (16.0-70.0); PLATELET COUNT 247 TH/MM3 (150-450); RED BLOOD COUNT 4.72 MIL/MM3 (4.50-5.90); RED CELL DISTRIBUTION WIDTH 13.2 % (11.6-17.2); WHITE BLOOD COUNT 5.6 TH/MM3 (4.0-11.0)
[2017-05-29 00:42] LABS: BICARBONATE 26.9 MEQ/L (21.0-32.0); CALCIUM 8.8 MG/DL (8.5-10.1); CREATININE 1.05 MG/DL (0.60-1.30)
[2017-05-29 03:35] VITALS: BP 159/108; PULSE 96; RESP 18; O2SAT 99
[2017-05-29] MEDS ORDERED: LORazepam 2 MG/ML VIAL IM ONE (06:30)
[2017-05-29] MEDS ORDERED: HALOPERIDOL LACTATE 5 MG/ML AMP IM ONE (06:30)
[2017-05-29] MEDS ORDERED: diphenhydrAMINE HCL 50 MG/ML VIAL IM ONE (06:30)
[2017-05-29 20:42] VITALS: BP 176/98; PULSE 109; RESP 17; TEMP 98.1; O2SAT 99
--- NOTE | 2017-05-29 21:52 | PD ---
History of Present Illness Chief Complaint: Psychiatric Symptoms Time Seen by Provider: 17:15 Travel History International Travel<30 Days: No Contact w/Intl Traveler<30days: No Known affected area: No Legal Status Legal Status: Franklin Act Franklin Act Signed By: Pancho Huertas Franklin Act Comment: 2017 @ 0142 History of Present Illness: History of Present Illness HPI 52-year-old male with history of schizophrenia who presents to emergency department under [place] act initiated by military lawyer for psychiatric evaluation. The report alleges that he was found by law enforcement on the side of the road, yelling aggressively. The patient continues to allege that he has had a device implanted into his right abdominal area and that this him plan monitors his whereabouts as well as controls some of his behaviors. 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 Today he is reporting that he is having difficulty with headaches due to the messages that this device transmits to his head. The patient becomes angry and agitated when I informed him that during his previous visit here it was determined that there was no device implanted in his side. The patient goes on to give me a telephone number where I can contact the well service floor workervice president sales and confirmed that he has had this device implanted. The patient tells me that he's made at least 200 phone calls to the [employer] and interestingly the number that he gives me that he's memorizes the actual number to the government agency. Electronic medical record is reviewed. The patient was last admitted to [facility] psychiatry Department in January of this year. He refused to take antipsychotic medications at the time. Apparently the patient has been noncompliant with his hypertension medication as well. PFSH Past Medical History Depression: Yes Diminished Hearing: No Genitourinary: No Hypertension: Yes Musculoskeletal: No Neurologic: No Psychiatric: Yes (Parnoid Schizophrenia) Reproductive: No Respiratory: Yes (HE HAS VERY HIGH BLOOD PRESSURE) Schizophrenia: Yes Tetanus Vaccination: < 5 Years Influenza Vaccination: Yes Past Surgical History Abdominal Surgery: No Ear Surgery: No Endocrine Surgery: No Eye Surgery: No Genitourinary Surgery: No Gynecologic Surgery: No Oral Surgery: No Thoracic Surgery: No Psychiatric History Psychiatric History Hx Psychiatric Treatment: Schizophrenia. Most recent hospitalization at [facility] in 2017. History of Inpatient Treatment: Yes Guns or firearms in home: No Social History Patient reports that he is single. Born in [place] and moved to [place] where he lived for 20 years. Has been in [place] attempt to 2 years. Hx Alcohol Use: No (DENIES) Hx Tobacco Use: No (DENIES) Hx Substance Use: No (DENIES) Substance Use Type: Marijuana Hx of Substance Use Treatment: No Allergies-Medications (Allergen,Severity, Reaction): Coded Allergies: lisinopril (Unverified Allergy, Severe, TACHYCARDIA, 05/29/17) aspirin (Unverified Allergy, Intermediate, GI UPSET, 05/29/17) Reported Meds & Prescriptions Reported Meds & Active Scripts Active Amlodipine (Amlodipine Besylate) 10 Mg Tab 10 Mg PO DAILY Bupropion HCl ER 24 HR (Bupropion HCl) 300 Mg Tab 300 Mg PO DAILY Hydrochlorothiazide 25 Mg Tab 25 Mg PO DAILY Thera/Beta-Carotene (Multiple Vitamin) 1 Tab Tab 1 Tab PO DAILY Reported Bystolic (Nebivolol) 10 Mg Tab 10 Mg PO DAILY Wellbutrin Xl 24 HR (Bupropion HCl) 300 Mg Tab 300 Mg PO DAILY Review of Systems ROS Limitations: Psychotic Mental Status Examination Appearance: Appropriate (maintaining basic hygiene) Consciousness: Alert Orientation: x4 Motor Activity: Normal gait Speech: Unremarkable Language: Adequate Fund of Knowledge: Adequate Attention and Concentration: Easily Distracted Memory: Unremarkable Mood: Angry Affect: Appropriate Thought Process & Associations: Other Thought Content: Delusional Hallucination Type: Auditory Delusion Type: Paranoid, Other (that he's had a device implanted where he can be tracked and from which he receives satellite communication.) Suicidal Ideation: No Suicidal Plan: No Suicidal Intention: No Homicidal Ideation: No Homicidal Plan: No Homicidal Intention: No Insight: Poor Judgment: Poor MDM Medical Decision Making Medical Record Reviewed: Yes Assessment/Plan 52-year-old male with history of schizophrenia and fixed delusions regarding having an implanted device in his right upper abdomen. He reports that this device was put in there by the government and that they are able to track him via satellite. The patient has refused to receive antipsychotic medication and due to his continued delusional believes is not taking his antihypertensive medication. At this time the patient remains under the Franklin act for further observation and treatment. He is being placed on a list for further evaluation and treatment. Orders Orders Complete Blood Count With Diff (05/29/17 00:09) Basic Metabolic Panel (Bmp) (05/29/17 00:09) Psych Screen (05/29/17 00:09) Drug Screen, Random Urine (05/29/17 00:09) Alcohol (Ethanol) (05/29/17 00:09) Haloperidol Inj (Haldol Inj) (05/29/17 06:30) Diphenhydramine Inj (Benadryl Inj) (05/29/17 06:30) Lorazepam Inj (Ativan Inj) (05/29/17 06:30) Diet Regular Basic (05/29/17 Breakfast) Diet Regular Basic (05/29/17 Lunch) Diet Regular Basic (05/29/17 Dinner) Results Vital Signs Date Time Temp Pulse Resp B/P (MAP) Pulse Ox O2 Delivery O2 Flow Rate FiO2 05/29/17 20:42 98.1 109 17 176/98 (124) 99 Room Air 05/29/17 03:35 96 18 159/108 (125) 99 Room Air 05/29/17 00:02 97.9 94 16 194/110 (138) 99 Laboratory Tests Test 05/29/17 00:20 05/29/17 04:50 White Blood Count 5.6 Red Blood Count 4.72 Hemoglobin 14.8 Hematocrit 43.5 Mean Corpuscular Volume 92.0 Mean Corpuscular Hemoglobin 31.3 Mean Corpuscular Hemoglobin Concent 34.0 Red Cell Distribution Width 13.2 Platelet Count 247 Mean Platelet Volume 7.4 Neutrophils (%) (Auto) 52.2 Lymphocytes (%) (Auto) 39.0 Monocytes (%) (Auto) 7.1 Eosinophils (%) (Auto) 1.0 Basophils (%) (Auto) 0.7 Neutrophils # (Auto) 2.9 Lymphocytes # (Auto) 2.2 Monocytes # (Auto) 0.4 Eosinophils # (Auto) 0.1 Basophils # (Auto) 0.0 CBC Comment DIFF FINAL Differential Comment Blood Urea Nitrogen 13 Creatinine 1.05 Random Glucose 88 Calcium Level 8.8 Sodium Level 143 Potassium Level 3.8 Chloride Level 109 Carbon Dioxide Level 26.9 Anion Gap 7 Estimat Glomerular Filtration Rate 74 Ethyl Alcohol Level 131 Urine Opiates Screen NEG Urine Barbiturates Screen NEG Urine Amphetamines Screen NEG Urine Benzodiazepines Screen NEG Urine Cocaine Screen NEG Urine Cannabinoids Screen POS Diagnosis Primary Impression: Delusional disorder, mixed type, with bizarre content, continuous Condition: Stable Marixa Stewart [facility] May 29, 2017 21:52
[2017-05-30 03:23] VITALS: BP 192/107; PULSE 82; RESP 18; TEMP 98.2; O2SAT 97
--- NOTE | 2017-05-30 03:36 | PD ---
Physical Exam Date Seen by Provider: May 30, 2017 Time Seen by Provider: 03:34 Data Data Last Documented VS Vital Signs Date Time Temp Pulse Resp B/P (MAP) Pulse Ox O2 Delivery O2 Flow Rate FiO2 05/30/17 03:23 98.2 82 18 192/107 (135) 97 Room Air Orders Orders Complete Blood Count With Diff (05/29/17 00:09) Basic Metabolic Panel (Bmp) (05/29/17 00:09) Psych Screen (05/29/17 00:09) Drug Screen, Random Urine (05/29/17 00:09) Alcohol (Ethanol) (05/29/17 00:09) Haloperidol Inj (Haldol Inj) (05/29/17 06:30) Diphenhydramine Inj (Benadryl Inj) (05/29/17 06:30) Lorazepam Inj (Ativan Inj) (05/29/17 06:30) Diet Regular Basic (05/29/17 Breakfast) Diet Regular Basic (05/29/17 Lunch) Diet Regular Basic (05/29/17 Dinner) Diet Regular Basic (05/30/17 Breakfast) Amlodipine (Norvasc) (05/30/17 03:45) Labs Laboratory Tests Test 05/29/17 00:20 05/29/17 04:50 White Blood Count 5.6 TH/MM3 Red Blood Count 4.72 MIL/MM3 Hemoglobin 14.8 GM/DL Hematocrit 43.5 % Mean Corpuscular Volume 92.0 FL Mean Corpuscular Hemoglobin 31.3 PG Mean Corpuscular Hemoglobin Concent 34.0 % Red Cell Distribution Width 13.2 % Platelet Count 247 TH/MM3 Mean Platelet Volume 7.4 FL Neutrophils (%) (Auto) 52.2 % Lymphocytes (%) (Auto) 39.0 % Monocytes (%) (Auto) 7.1 % Eosinophils (%) (Auto) 1.0 % Basophils (%) (Auto) 0.7 % Neutrophils # (Auto) 2.9 TH/MM3 Lymphocytes # (Auto) 2.2 TH/MM3 Monocytes # (Auto) 0.4 TH/MM3 Eosinophils # (Auto) 0.1 TH/MM3 Basophils # (Auto) 0.0 TH/MM3 CBC Comment DIFF FINAL Differential Comment Blood Urea Nitrogen 13 MG/DL Creatinine 1.05 MG/DL Random Glucose 88 MG/DL Calcium Level 8.8 MG/DL Sodium Level 143 MEQ/L Potassium Level 3.8 MEQ/L Chloride Level 109 MEQ/L Carbon Dioxide Level 26.9 MEQ/L Anion Gap 7 MEQ/L Estimat Glomerular Filtration Rate 74 ML/MIN Ethyl Alcohol Level 131 MG/DL Urine Opiates Screen NEG Urine Barbiturates Screen NEG Urine Amphetamines Screen NEG Urine Benzodiazepines Screen NEG Urine Cocaine Screen NEG Urine Cannabinoids Screen POS MDM Medical Record Reviewed: Yes Supervised Visit with LALA: No Interpretation(s) Laboratory Tests Test 05/29/17 00:20 05/29/17 04:50 White Blood Count 5.6 TH/MM3 Red Blood Count 4.72 MIL/MM3 Hemoglobin 14.8 GM/DL Hematocrit 43.5 % Mean Corpuscular Volume 92.0 FL Mean Corpuscular Hemoglobin 31.3 PG Mean Corpuscular Hemoglobin Concent 34.0 % Red Cell Distribution Width 13.2 % Platelet Count 247 TH/MM3 Mean Platelet Volume 7.4 FL Neutrophils (%) (Auto) 52.2 % Lymphocytes (%) (Auto) 39.0 % Monocytes (%) (Auto) 7.1 % Eosinophils (%) (Auto) 1.0 % Basophils (%) (Auto) 0.7 % Neutrophils # (Auto) 2.9 TH/MM3 Lymphocytes # (Auto) 2.2 TH/MM3 Monocytes # (Auto) 0.4 TH/MM3 Eosinophils # (Auto) 0.1 TH/MM3 Basophils # (Auto) 0.0 TH/MM3 CBC Comment DIFF FINAL Differential Comment Blood Urea Nitrogen 13 MG/DL Creatinine 1.05 MG/DL Random Glucose 88 MG/DL Calcium Level 8.8 MG/DL Sodium Level 143 MEQ/L Potassium Level 3.8 MEQ/L Chloride Level 109 MEQ/L Carbon Dioxide Level 26.9 MEQ/L Anion Gap 7 MEQ/L Estimat Glomerular Filtration Rate 74 ML/MIN Ethyl Alcohol Level 131 MG/DL Urine Opiates Screen NEG Urine Barbiturates Screen NEG Urine Amphetamines Screen NEG Urine Benzodiazepines Screen NEG Urine Cocaine Screen NEG Urine Cannabinoids Screen POS Differential Diagnosis MDM: High Differential diagnoses: Schizophrenia, schizoaffective disorder, bipolar, anxiety, depression, adjustment reaction, mood disorder NOS, ODD, depressive disorder NOS, dementia, dementia with agitation, psychosis NOS, substance induced mood disorder, DMDD, Asperger syndrome, infection,electrolyte abnormality, malingering. Narrative Course Mental health screening discussed with the patient. Psychiatric screen ordered. The patient is been medically cleared earlier. I was notified by the nursing staff the patient blood pressure was elevated. He has been noncompliant with his medications. The patient has agreed to take his blood pressure medicine. According to nursing staff the patient takes Norvasc 10 mg daily. The patient is given a dose now. At this is hypertension-noncompliance Diagnosis Primary Impression: Delusional disorder, mixed type, with bizarre content, continuous Condition: Stable Trung Navarro May 30, 2017 03:36
[2017-05-30 07:03] VITALS: BP 194/96; PULSE 85; RESP 17; TEMP 98.3; O2SAT 99
[2017-05-30] MEDS ORDERED: NEBIVOLOL 10 MG TAB PO ONE (09:15)
[2017-05-30] MEDS ORDERED: HYDROCHLOROTHIAZIDE 25 MG TAB PO ONE (09:15)
[2017-05-30] MEDS ORDERED: diphenhydrAMINE HCL 50 MG/ML VIAL ONE (09:45)
[2017-05-30] MEDS ORDERED: LORazepam 2 MG/ML VIAL ONE (09:45)
[2017-05-30] MEDS ORDERED: ZIPRASIDONE MESYLATE 20 MG VIAL IM ONE (09:46)
[2017-05-30 11:05] VITALS: BP 172/105; PULSE 100; RESP 22; O2SAT 100
[2017-05-30 14:15] VITALS: BP 140/90; PULSE 93
[2017-05-30] MEDS ORDERED: ALUMINUM/MAGNESIUM/SIMETH 30 ML CUP PO PRN (15:15)
[2017-05-30] MEDS ORDERED: MAGNESIUM HYDROXIDE SUSP 30 ML CUP PO PRN (15:15)
[2017-05-30] MEDS ORDERED: ACETAMINOPHEN 325 MG TAB PO PRN (15:15)
[2017-05-30 16:02] VITALS: BP 155/100; PULSE 78; RESP 18; TEMP 98.8; O2SAT 97
[2017-05-30 16:03] VITALS: BP 160/96
[2017-05-30] MEDS ORDERED: OLANZapine IM 10 MG VIAL IM ONE ×2 (21:11→21:45)
[2017-05-30] MEDS ORDERED: LORazepam 2 MG TAB PO PRN (22:00)
[2017-05-30] MEDS ORDERED: LORazepam 2 MG/ML VIAL IV PUSH PRN ×4 (22:00)
[2017-05-30] MEDS ORDERED: LORazepam 1 MG TAB PO PRN (22:00)
[2017-05-30] MEDS ORDERED: FLUMAZENIL 0.5 MG/5 ML VIAL IV PUSH PRN (22:00)
[2017-05-31 05:42] VITALS: BP 157/90; PULSE 74; RESP 20; TEMP 96.8; O2SAT 98
[2017-05-31] MEDS ORDERED: OLANZapine IM 10 MG VIAL IM PRN (08:45)
[2017-05-31] MEDS: NEBIVOLOL 10 MG TAB PO SCH ×2 (09:00→10:52)
[2017-05-31] MEDS ORDERED: HYDROCHLOROTHIAZIDE 25 MG TAB PO SCH (09:00)
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
[2017-05-31] MEDS ORDERED: HYDR25TA5 PO (11:52)
[2017-05-31] MEDS ORDERED: AMLO10TA2 PO (11:52)
[2017-05-31] MEDS ORDERED: BYST10TA2 PO (11:52)
[2017-05-31] MEDS ORDERED: BUPR300T PO (11:52)
[2017-05-31 12:38] LABS: BICARBONATE 31.2 MEQ/L (21.0-32.0); BLOOD UREA NITROGEN 25 MG/DL (7-18); CALCIUM 9.8 MG/DL (8.5-10.1); CHLORIDE 100 MEQ/L (98-107); CHOLESTEROL 183 MG/DL (120-200); CREATININE 1.17 MG/DL (0.60-1.30); GLOMERULAR FILTRATION RATE 65 ML/MIN (>89); GLUCOSE,RANDOM 89 MG/DL (74-106); SODIUM (NA) 138 MEQ/L (136-145)
[2017-05-31 12:50] LABS: CHOLESTEROL/ HDL RATIO 2.92 RATIO; HDL CHOLESTEROL 62.5 MG/DL (40.0-60.0); LDL CHOLESTEROL 70 MG/DL (0-99); TRIGLYCERIDES 255 MG/DL (42-150)
[2017-05-31 14:46] LABS: HEMOGLOBIN A1C 4.8 % (4.3-6.0)
== END 2017-05-31 12:30 | disposition left against medical advice (07) | DRG 885 ==
LOC: NEPD 23:50 → NEDA 05-30 15:19 → H270 05-30 16:00
PROVIDERS: ADMIT Psychiatry & Neurology Psychiatry; ATTEND Psychiatry & Neurology Psychiatry
DX: F20.0 Paranoid schizophrenia (principal); Z91.14 Patient's other noncompliance with medication regimen; I10 Essential (primary) hypertension; Z88.8 Allergy status to other drugs, medicaments and biological substances
CPT/HCPCS: 80048; 80061; 80307; 83036; 85025; 96372; 96374; 96375; J1200; J1630; J2060; J3486